=== PATIENT | male | born 1990 | race Caucasian/White ===

== ENCOUNTER 2018-01-20 13:36 | Inpatient (IN) | payer OTHER ==
[2018-01-20] MEDS: DEXTROSE 5%-0.45% NACL 1,000 ML IV (15:52)
[2018-01-20] MEDS ORDERED: ACETAMINOPHEN 325 MG TAB PO (16:00)
[2018-01-20] MEDS ORDERED: NACL 0.9% 3 ML SYG IV (16:00)
[2018-01-20] MEDS: metroNIDAZOLE 500 MG/NS (PMX) 100 ML IVPB ×2 (16:31→22:07)
[2018-01-20] MEDS: CIPROFLOXACIN 200 MG/D5W IVPB 100 ML IVPB (18:22)
[2018-01-20] MEDS: morphine 2 MG INJ IV (22:07)
[2018-01-20] MEDS: ONDANSETRON 4 MG INJ IV (22:07)
[2018-01-21 05:25] LABS: ADD MAN DIFF? NO
[2018-01-21] MEDS: metroNIDAZOLE 500 MG/NS (PMX) 100 ML IVPB ×3 (05:28→22:00)
[2018-01-21] MEDS: PANTOPRAZOLE 40 MG INJ IV (05:28)
[2018-01-21 05:34] LABS: BASOPHILS % 0.5 % (0.0-2.0); EOSINOPHILS # 0.1 10^3/ul (0.0-0.5); EOSINOPHILS % 0.8 % (0.0-7.0); HEMATOCRIT 46.7 % (42.0-52.0); HEMOGLOBIN 15.6 g/dl (14.0-18.0); LYMPHOCYTES # 2.7 10^3/ul (0.8-2.9); LYMPHOCYTES % 45.3 % (15.0-51.0); MEAN CORPUSCULAR HEMOGLOBIN 28.8 pg (29.0-33.0); MEAN CORPUSCULAR HGB CONC 33.4 g/dl (32.0-37.0); MEAN CORPUSCULAR VOLUME 86.3 fl (82.0-101.0); MEAN PLATELET VOLUME 11.5 fl (7.4-10.4); MONOCYTE # 0.5 10^3/ul (0.3-0.9); NEUTROPHIL # 2.7 10^3/ul (1.6-7.5); NEUTROPHILS % 44.2 % (39.0-77.0); PLATELET COUNT 186 10^3/UL (140-415); RED BLOOD COUNT 5.41 10^6/ul (4.70-6.10); RED CELL DISTRIBUTION WIDTH 13.1 % (11.5-14.5)
[2018-01-21 05:54] LABS: ALANINE AMINOTRANSFERASE 27 IU/L (13-69); ALBUMIN 3.7 g/dl (3.3-4.9); ALBUMIN/GLOBULIN RATIO 1.23; ALKALINE PHOSPHATASE 70 IU/L (42-121); ANION GAP 14 (8-16); ASPARTATE AMINO TRANSFERASE 18 IU/L (15-46); BILIRUBIN,INDIRECT 0.5 mg/dl (0-1.1); BILIRUBIN,TOTAL 0.5 mg/dl (0.2-1.3); BLOOD UREA NITROGEN 7 mg/dl (7-20); CARBON DIOXIDE 25 mmol/L (21-31); CHLORIDE 107 mmol/L (97-110); CREATININE 0.96 mg/dl (0.61-1.24); GLUCOSE 95 mg/dl (70-220); MAGNESIUM 2.2 mg/dl (1.7-2.5); POTASSIUM 3.6 mmol/L (3.5-5.1); SODIUM 142 mmol/L (135-144); TOTAL PROTEIN 6.7 g/dl (6.1-8.1)
[2018-01-21 05:54] LABS: PHOSPHORUS 4.2 mg/dl (2.5-4.9)
[2018-01-21 06:08] LABS: INR 1.01; PARTIAL THROMBOPLASTIN TIME 34.6 Sec (25.0-35.0); PROTIME 13.4 Sec (11.9-14.9)
[2018-01-21] MEDS: CIPROFLOXACIN 200 MG/D5W IVPB 100 ML IVPB ×2 (08:25→21:19)
[2018-01-21] MEDS: DEXTROSE 5%-0.45% NACL 1,000 ML IV ×2 (09:25→16:36)
[2018-01-21] MEDS: LIDOCAINE 1% (MPF) 30 ML INJ INJ (13:15)
[2018-01-21] MEDS: BUPIVACAINE 0.25%/EPI (SDV) 30 ML INJ INJ (13:15)
[2018-01-21] MEDS ORDERED: BUPIVACAINE 0.25%/EPI (SDV) 30 ML INJ (13:19)
[2018-01-21] MEDS ORDERED: LIDOCAINE 1% (MPF) 30 ML INJ (13:19)
[2018-01-21] MEDS ORDERED: DIPHENHYDRAMINE 50 MG INJ IV (13:30)
[2018-01-21] MEDS ORDERED: ONDANSETRON 4 MG INJ IV (13:30)
[2018-01-21] MEDS ORDERED: FENTAnyl 50 MCG/ML VIAL IV (13:30)
[2018-01-21] MEDS ORDERED: MEPERIDINE 25 MG INJ IV (13:30)
[2018-01-21] MEDS ORDERED: HYDROmorphONE 1 MG/5 ML IV SYRINGE IV (13:30)
[2018-01-21] MEDS ORDERED: METOCLOPRAMIDE 10 MG INJ IV (13:30)
[2018-01-21] MEDS ORDERED: MIDAZOLAM 1 MG/ML 2 ML INJ (13:39)
[2018-01-21] MEDS ORDERED: HYDROCODONE/APAP (5/325) TAB PO (14:00)
[2018-01-21] MEDS ORDERED: ROCURONIUM 50 MG INJ (15:05)
[2018-01-21] MEDS ORDERED: GLYCOPYRROLATE 0.4 MG INJ (15:05)
[2018-01-21] MEDS ORDERED: NEOSTIGMINE 3 MG/3 ML SYRINGE (15:05)
[2018-01-21] MEDS ORDERED: PROPOFOL 20 ML (15:05)
[2018-01-21] MEDS ORDERED: CEFAZOLIN 1 GM INJ ×2 (15:05)
[2018-01-21] MEDS ORDERED: LIDOCAINE 2% (SDV) 5 ML INJ (15:05)
[2018-01-21] MEDS ORDERED: ONDANSETRON 4 MG INJ (15:06)
[2018-01-21] MEDS: HYDROmorphONE 1 MG/5 ML IV SYRINGE IV (15:35)
[2018-01-21] MEDS: morphine 2 MG INJ IV ×2 (16:36→21:19)
[2018-01-21] MEDS: HYDROCODONE/APAP (5/325) TAB PO (17:59)
[2018-01-22] MEDS: HYDROCODONE/APAP (5/325) TAB PO ×2 (00:11→10:23)
[2018-01-22] MEDS: morphine 2 MG INJ IV ×2 (01:41→15:16)
[2018-01-22] MEDS: PANTOPRAZOLE 40 MG INJ IV (05:13)
[2018-01-22] MEDS: metroNIDAZOLE 500 MG/NS (PMX) 100 ML IVPB ×2 (05:13→15:16)
[2018-01-22] MEDS: ONDANSETRON 4 MG INJ IV (07:31)
[2018-01-22] MEDS: CIPROFLOXACIN 200 MG/D5W IVPB 100 ML IVPB (08:43)
[2018-01-22] MEDS: DEXTROSE 5%-0.45% NACL 1,000 ML IV (08:43)
[2018-01-22 11:47] LABS: ADD MAN DIFF? NO
[2018-01-22 11:52] LABS: WHITE BLOOD COUNT 9.1 10^3/ul (4.8-10.8)
[2018-01-22 11:52] LABS: BASOPHILS % 0.2 % (0.0-2.0); HEMATOCRIT 49.3 % (42.0-52.0); HEMOGLOBIN 16.6 g/dl (14.0-18.0); LYMPHOCYTES # 1.2 10^3/ul (0.8-2.9); LYMPHOCYTES % 13.1 % (15.0-51.0); MEAN CORPUSCULAR HEMOGLOBIN 28.7 pg (29.0-33.0); MEAN CORPUSCULAR HGB CONC 33.7 g/dl (32.0-37.0); MEAN CORPUSCULAR VOLUME 85.3 fl (82.0-101.0); MEAN PLATELET VOLUME 11.8 fl (7.4-10.4); MONOCYTE # 0.8 10^3/ul (0.3-0.9); MONOCYTES % 8.8 % (0.0-11.0); NEUTROPHILS % 77.6 % (39.0-77.0); PLATELET COUNT 187 10^3/UL (140-415); RED BLOOD COUNT 5.78 10^6/ul (4.70-6.10); RED CELL DISTRIBUTION WIDTH 12.8 % (11.5-14.5)
[2018-01-22] MEDS: BISACODYL 10 MG SUPP PR (12:00)
[2018-01-22 12:28] LABS: ALANINE AMINOTRANSFERASE 68 IU/L (13-69); ALBUMIN 4.1 g/dl (3.3-4.9); ALBUMIN/GLOBULIN RATIO 1.36; ALKALINE PHOSPHATASE 71 IU/L (42-121); ANION GAP 14 (8-16); ASPARTATE AMINO TRANSFERASE 56 IU/L (15-46); BILIRUBIN,INDIRECT 0.7 mg/dl (0-1.1); BILIRUBIN,TOTAL 0.7 mg/dl (0.2-1.3); BLOOD UREA NITROGEN 5 mg/dl (7-20); CARBON DIOXIDE 26 mmol/L (21-31); CHLORIDE 100 mmol/L (97-110); CREATININE 0.88 mg/dl (0.61-1.24); GLUCOSE 100 mg/dl (70-220); SODIUM 136 mmol/L (135-144); TOTAL PROTEIN 7.1 g/dl (6.1-8.1)
== END 2018-01-22 17:30 | disposition home or self-care (01) | DRG 419 ==
LOC: MS3 13:36
PROC: 0FT44ZZ Resection of Gallbladder, Percutaneous Endoscopic Approach (ICD-10-PCS; principal; 2018-01-21 13:42)
DX: K80.12 Calculus of gallbladder with acute and chronic cholecystitis without obstruction (principal); E66.01 Morbid (severe) obesity due to excess calories; Z68.32 Body mass index [BMI] 32.0-32.9, adult
CPT/HCPCS: 80053; 83735; 84100; 85025; 85610; 85730; 86850; 86900; 86901; 88304